=== PATIENT | male | born 1960 | race Caucasian/White ===

== ENCOUNTER 2017-10-06 22:53 | Emergency (ER) | payer OTHER, BC ==
[2017-10-07] MEDS: NS 1,000 ML IV (02:56)
[2017-10-07 03:06] LABS: HEMATOCRIT 42.4 % (42.0-52.0); HEMOGLOBIN 14.5 g/dl (13.5-17.5); MEAN CORPUSCULAR HGB CONC 34.2 g/dl (32.0-36.5); MEAN CORPUSCULAR VOLUME 90.8 fl (80.0-96.0); PLATELET COUNT, AUTOMATED 257 10^3/uL (150-450); RED BLOOD COUNT 4.67 10^6/uL (4.30-6.10); RED CELL DISTRIBUTION WIDTH 13.2 % (11.5-14.5); WHITE BLOOD COUNT 11.9 10^3/uL (4.0-10.0)
[2017-10-07 03:13] LABS: ADD MANUAL DIFFER YES; DIFF SLIDE NUMBER 101; POSITIVE DIFF POS FLAG
[2017-10-07 03:28] LABS: ANION GAP 5 MEQ/L (8-16); BLOOD UREA NITROGEN 20 MG/DL (7-18); CALCIUM LEVEL 8.7 MG/DL (8.5-10.1); CARBON DIOXIDE LEVEL 29 MEQ/L (21-32); CHLORIDE LEVEL 110 MEQ/L (98-107); CPK CREATINE PHOSPHOKINASE 302 U/L (39-308); GLOMERULAR FILTRATION RATE > 60.0 (>56); GLUCOSE, FASTING 115 MG/DL (70-100); POTASSIUM SERUM 4.1 MEQ/L (3.5-5.1); SODIUM LEVEL 144 MEQ/L (136-145)
[2017-10-07 03:34] LABS: ATYPICAL LYMPH 10 % (0-5); EOSINOPHILS 6 % (0-5); LYMPHOCYTES 31 % (16-52); MONOCYTES 14 % (0-8); NEUTROPHILS 39 % (35-75)
[2017-10-07 03:35] LABS: PLATELET ESTIMATE NORMAL (NORMAL)
== END 2017-10-07 04:31 | disposition home or self-care (01) ==
LOC: M ED 22:53
DX: S89.91XA Unspecified injury of right lower leg, initial encounter (principal); W86.8XXA Exposure to other electric current, initial encounter; Y92.59 Other trade areas as the place of occurrence of the external cause; Y99.0 Civilian activity done for income or pay
CPT/HCPCS: 93971

== ENCOUNTER → 2022-11-15 | Outpatient (CLI) | payer OTHER, BC ==
[~2022-11-15] MED LIST: GABA-282; VITA200016 PO
== END ==
LOC: M PLARAD 11:50
PROVIDERS: ATTEND Physician Assistant
DX: R91.1 Solitary pulmonary nodule (principal)

== ENCOUNTER → 2023-06-30 | Outpatient (CLI) | payer BC | LOC: M RAD 07:49 | PROVIDERS: ATTEND Internal Medicine Pulmonary Disease | DX: R91.8 Other nonspecific abnormal finding of lung field (principal); I25.10 Atherosclerotic heart disease of native coronary artery without angina pectoris ==

== ENCOUNTER → 2024-08-06 | Outpatient (CLI) | payer BC, MEDICARE ==
[~2024-08-06] MED LIST changes: +GABA-1172; -GABA-282
== END ==
LOC: M RAD 07:44
PROVIDERS: ATTEND Internal Medicine Pulmonary Disease
DX: R91.1 Solitary pulmonary nodule (principal)

== ENCOUNTER → 2024-10-15 | Outpatient (CLI) | payer BC, MEDICARE | LOC: M RAD 07:47 | PROVIDERS: ATTEND Internal Medicine Pulmonary Disease | DX: R91.1 Solitary pulmonary nodule (principal) ==

== ENCOUNTER 2025-01-19 14:42 | Emergency (ER) | payer BC, MEDICARE ==
[~2025-01-19] VITALS: Ht 177.8 cm; Wt 88.6 kg
[2025-01-19] MEDS ORDERED: TADA5TAB2 (15:00)
[2025-01-19] MEDS ORDERED: PARO20TA3 (15:00)
[2025-01-19] MEDS ORDERED: PRED10TA2 (15:00)
[2025-01-19] MEDS ORDERED: LOSA25TA13 (15:00)
[2025-01-19] MEDS ORDERED: ALBU2.5V10 (15:00)
[2025-01-19] MEDS ORDERED: FLUT1BLS8 (15:00)
[2025-01-19] MEDS ORDERED: VITA1CAP25 (15:00)
[2025-01-19] MEDS ORDERED: TAMS1CAP17 (15:00)
[2025-01-19] MEDS ORDERED: DOXY100C3 (15:00)
[2025-01-19] MEDS ORDERED: ALBU8.5H (15:00)
[2025-01-19] MEDS ORDERED: ATOR80TA59 (15:00)
[2025-01-19 15:47] LABS: BASO # 0.1 10^3/uL (0.0-0.2); BASO % 0.4 % (0.0-1.0); EOS # 0.0 10^3/uL (0.0-0.5); EOS % 0.0 % (0.0-3.0); LYMPH # 1.7 10^3/uL (1.5-5.0); LYMPH % 14.1 % (24.0-44.0); MONO # 0.7 10^3/uL (0.0-0.8); MONO % 5.6 % (2.0-8.0); NEUTROPHILS # 9.2 10^3/uL (1.5-8.5); NEUTROPHILS % 77.2 % (36.0-66.0); PLATELET COUNT, AUTOMATED 432 10^3/uL (150-450)
[2025-01-19 16:01] LABS: CALCIUM LEVEL 9.4 MG/DL (8.3-10.6); CARBON DIOXIDE LEVEL 31.0 MMOL/L (20-31); CHLORIDE LEVEL 101.0 MMOL/L (98-107); CREATININE FOR GFR 1.1 MG/DL (0.70-1.30); GLOMERULAR FILTRATION RATE 75.4 (>49); MAGNESIUM LEVEL 1.8 MG/DL (1.8-2.4); POTASSIUM SERUM 4.3 MMOL/L (3.5-5.1); SODIUM LEVEL 141.0 MMOL/L (136-145)
[2025-01-19 16:04] LABS: FREE T4 1.29 NG/DL (0.89-1.76)
[2025-01-19] MEDS: NS 500 ML IV ONE (16:45)
[2025-01-19 18:15] VITALS: BP 139/79; TEMP 98.2
[2025-01-19 19:00] VITALS: O2SAT 93
== END 2025-01-19 19:08 | disposition home or self-care (01) ==
LOC: M ED 14:42
DX: R55 Syncope and collapse (principal); R05.4 Cough syncope; I45.10 Unspecified right bundle-branch block; J44.9 Chronic obstructive pulmonary disease, unspecified; I10 Essential (primary) hypertension; E78.5 Hyperlipidemia, unspecified; F17.210 Nicotine dependence, cigarettes, uncomplicated; Z79.51 Long term (current) use of inhaled steroids; Z79.2 Long term (current) use of antibiotics; Z79.52 Long term (current) use of systemic steroids; Z79.899 Other long term (current) drug therapy

== ENCOUNTER → 2025-02-04 | Outpatient (CLI) | payer BC ==
[~2025-02-04] MED LIST changes: +ALBU2.5V10; +ALBU8.5H; +ATOR80TA59; +DOXY100C3; +FLUT1BLS8; +LOSA25TA13; +PARO20TA3; +PRED10TA2; +TADA5TAB2; +TAMS1CAP17; +VITA1CAP25
== END ==
LOC: M PLAIMG 06:54
PROVIDERS: ATTEND Internal Medicine Pulmonary Disease
DX: R91.8 Other nonspecific abnormal finding of lung field (principal)